=== PATIENT | female | born 1970 ===

== ENCOUNTER 2017-02-19 11:32 | Emergency (ER) | payer OTHER ==
[2017-02-19 11:54] VITALS: BP 114/71; RESP 19; TEMP 97; O2SAT 99
--- NOTE | 2017-02-19 12:24 | ED PDOC ---
HPI: General Adult Time Seen by Provider: 02/19/17 12:03 Chief Complaint (Nursing): Upper Extremity Problem/Injury Chief Complaint (Provider): Left sided Pain History Per: Patient, Family (daughter ) History/Exam Limitations: no limitations Onset/Duration Of Symptoms: Days (2) Current Symptoms Are (Timing): Still Present Additional Complaint(s): Patti Lozano is a 46 y/o female presenting to the ER on 02/19/2017 with complaints of "heaviness" on the left side of her body for two days. Patient states "heaviness" begins on her fL foot and travels all the way up to her chest and L arm. She reports when this occurs, she feels she is "drowning" when she experiences chest pain. Patient says these episodes last for about a minute and resolves after taking deep breaths. Patient additionally reports associated palpitations and shortness of breath. Patient is asymptomatic upon arrival to the ED. Denies history of DVT, PE, thyroid disorders, anticoagulant use, recent surgeries, or control use. Of note, patient states she travel to [facility] in October 2016 and return in November 2016. Past Medical History Reviewed: Historical Data, Nursing Documentation, Vital Signs Vital Signs: Last Vital Signs Temp 97.0 F L 02/19/17 11:52 Pulse 65 02/19/17 14:39 Resp 19 02/19/17 11:52 BP 114/71 02/19/17 11:52 Pulse Ox 99 02/19/17 14:39 - Medical History PMH: No Chronic Diseases - Surgical History Other surgeries: hysterectomy - Family History Family History: States: CAD (father passes away due to CAD at 83 and mother at 53) - Social History Current smoker - smoking cessation education provided: No Alcohol: None Drugs: Denies - Home Medications Home Medications: Ambulatory Orders Medication Instructions Recorded Naproxen [Naprosyn] 500 mg PO BID PRN #30 tab 02/19/17 - Allergies Allergies/Adverse Reactions: Allergies Allergy/AdvReac Type Severity Reaction Status Date / Time No Known Allergies Allergy Verified 02/19/17 11:54 Review of Systems ROS Statement: Except As Marked, All Systems Reviewed And Found Negative Cardiovascular: Positive for: Chest Pain, Palpitations Respiratory: Positive for: Shortness of Breath Musculoskeletal: Positive for: Arm Pain, Foot Pain Neurological: Negative for: Weakness, Numbness Physical Exam - Reviewed Nursing Documentation Reviewed: Yes Vital Signs Reviewed: Yes - Physical Exam Appears: Positive for: Non-toxic, No Acute Distress Head Exam: Positive for: ATRAUMATIC, NORMOCEPHALIC Skin: Positive for: Normal Color. Negative for: Rash Eye Exam: Positive for: Normal appearance ENT: Positive for: Normal ENT Inspection Neck: Positive for: Normal, Painless ROM, Supple Cardiovascular/Chest: Positive for: Regular Rate, Rhythm. Negative for: Murmur Respiratory: Positive for: Normal Breath Sounds. Negative for: Wheezing, Respiratory Distress Pulses-Dorsalis Pedis (L): 2+ Pulses-Dorsalis Pedis (R): 2+ Pulses-Radial (L): 2+ Pulses-Radial (R): 2+ Gastrointestinal/Abdominal: Positive for: Normal Exam, Soft. Negative for: Tenderness Back: Positive for: Normal Inspection Extremity: Positive for: Normal ROM, Other (Equal chief green officer strength bilat, equal strength to lower extremity ( 5/5 )). Negative for: Calf Tenderness ((-) bilat ) Neurologic/Psych: Positive for: Alert, Oriented. Negative for: Motor/Sensory Deficits - Laboratory Results Result Diagrams: 02/19/17 12:43 02/19/17 12:43 - ECG ECG: Positive for: Interpreted By Me ECG Rhythm: Negative for: ST/T Changes Rate: 65 O2 Sat by Pulse Oximetry: 99 - Radiology X-Ray: Read By Radiologist (CXR) X-Ray Interpretation: No Acute Disease - Progress ED Course And Treament: Reviewed lab results with patient. Reports no episodes while in ED. Instructed to f/u with [facility] for further evaluation. Medical Decision Making Medical Decision Makin:03 Initial Impression- 46 y/o female with chest pain and LUE pain Initial Plan- * EKG * CMP * HCG * Troponin * CBC w/ differential * D-Dimer * CXR * Aspirin 324 mg PO Documented by Katey Li, acting as a scribe for Jelani Sosa PA-C All medical record entries made by the Scribe were at my direction and personally dictated by me. I have reviewed the chart and agree that the record accurately reflects my personal performance of the history, physical exam, medical decision making, and the department course for this patient. I have also personally directed, reviewed, and agree with the discharge instructions and disposition. Disposition - Clinical Impression Clinical Impression: Chest pain, Paresthesias - Patient ED Disposition Is Patient to be Admitted: No - Disposition Referrals: [facility] [place] [Outside] Disposition: Routine/Home Disposition Time: 15:50 Condition: STABLE Prescriptions: Naproxen [Naprosyn] 500 mg PO BID PRN #30 tab PRN Reason: Pain Instructions: Chest Pain (ED), Paresthesia (ED) Print Language: [place]
--- NOTE | 2017-02-19 12:54 | RAD ---
HISTORY: Chest pain COMPARISON: No prior. TECHNIQUE: Chest PA and lateral FINDINGS: LUNGS: The lungs are well inflated and clear. PLEURA: No significant pleural effusion identified. No pneumothorax apparent. CARDIOVASCULAR: Normal. OSSEOUS STRUCTURES: No significant abnormalities. VISUALIZED UPPER ABDOMEN: Normal. OTHER FINDINGS: None. IMPRESSION: No active pulmonary disease.
[2017-02-19 13:35] LABS: BASO % 0.6 % (0.0-2.0); EOS # 0.1 K/uL (0.0-0.7); EOS % 1.4 % (0.0-4.0); HEMOGLOBIN 14.6 g/dL (12.0-16.0); LYMPH % 43.3 % (20.0-40.0); MEAN CELL VOLUME 92.7 fl (81.0-99.0); MEAN CORPUSCULAR HEMOGLOBIN 31.6 pg (27.0-31.0); MEAN CORPUSCULAR HGB CONC 34.1 g/dL (33.0-37.0); MEAN PLATELET VOLUME 8.6 fl (7.2-11.7); MONO # 0.7 K/uL (0.0-0.8); MONO % 10.1 % (0.0-10.0); NEUT # 3.1 K/uL (1.8-7.0); NEUT % 44.6 % (50.0-75.0); NRBC % 0.1 % (0.0-0.0); RBC 4.61 Mil/uL (3.80-5.20); RED CELL DISTRIBUTION WIDTH 12.8 % (11.5-14.5); WHITE BLOOD COUNT 6.9 K/uL (4.8-10.8)
[2017-02-19 14:19] LABS: ALB/GLOB RATIO 1.4 (1.0-2.1); ALBUMIN 4.7 g/dL (3.5-5.0); ALT/SGPT 45 U/L (9-52); AST/SGOT 43 U/L (14-36); BLOOD UREA NITROGEN 16 mg/dl (7-17); CALCIUM 9.7 mg/dL (8.4-10.2); GFR AFRICAN-AMERICAN > 60; GFR NON-AFRICAN AMERICAN > 60
[2017-02-19 14:40] VITALS: PULSE 65
--- NOTE | 2017-02-20 08:26 | CARD ---
APPROVED REPORT EKG Measurement Heart [id number] <Conclusion> Normal sinus rhythm Normal ECG
== END 2017-02-19 16:08 | disposition home or self-care (01) ==
LOC: H.ER 11:32
DX: R07.89 Other chest pain (principal); R20.2 Paresthesia of skin